=== PATIENT | male | born 1980 | race Caucasian/White ===

== ENCOUNTER → 2023-04-08 | Outpatient (CLI) | payer OTHER, SELFPAY ==
--- NOTE | 2023-04-08 | SEP_PTH ---
PATHOLOGY RESULTS PATIENT: SEEMA HARVEY LOC: [facility] U#:[id number] AGE/SX: 42/M ROOM: RE04/08/[address]: Dr. Esteban Becerra MD : [id number] BED: DIS: 04/08/2023 SPEC #: [id number] RECD: 04/09/23 08:23 STATUS: STEFANIE [facility] #: [id number] SARATH: 04/08/23 00:[address]: Esteban Becerra DEPT: SURGICAL PATHOLOGY RECD BY: Brandie Corrigan ENTERED: 04/09/23 08:23 SP TYPE: SEPTUM OTHR DR: LIN Tissues: Nasal septum, NOS Procedures: Decalcification bone/plaque Surgery Specimen Level III HEADER OPERATION: Septoplasty, submucous resection of inferior turbinates PRE-OP DIAGNOSIS: Nasal congestion, hypertrophy of nasal turbinates, deviated nasal septum TISSUE SUBMITTED: Nasal septum MICROSCOPIC DIAGNOSIS Nasal septum, septoplasty: Fragments of hyaline cartilage and bone with reparative and reactive change (clinically deviated septum). AM:benjamin 04/12/2023 MICROSCOPIC DESCRIPTION Slides are reviewed. GROSS DESCRIPTION Received in fixative is one container labeled with the patient's name and designated nasal septum. The specimen consists of multiple irregular fragments of bone and cartilage that in aggregate measure 4.5 x 3.0 x 0.5 cm. Assistant Foreman tissue is submitted in one cassette after decalcification. / SJ:benjamin 04/09/2023 TC:5 CPT: 97072, 11868
== END | disposition home or self-care (01) ==
LOC: LABSPEC 16:05
PROVIDERS: Referring Provider Otolaryngology; Visit Provider Otolaryngology
DX: R09.81 Nasal congestion (principal); J34.3 Hypertrophy of nasal turbinates; J34.2 Deviated nasal septum
CPT/HCPCS: 88304; 88311